=== PATIENT | male | born 1930 | race Caucasian/White ===

== ENCOUNTER 2018-08-18 15:32 | Observation (INO) ==
--- NOTE | 2018-08-18 16:17 | Emergency Department Note ---
Disposition Clinical Impression: Traumatic hematoma of right knee Qualifiers: Encounter type: initial encounter Qualified Code(s): S80.01XA - Contusion of right knee, initial encounter Disposition: Still a Patient Condition: Undetermined Forms: ED Satisfaction Letter Lower Extremity Injury HPI - General Chief Complaint: ED Extremity Injury, Lower Stated Complaint: Right knee injury and right shoulder s/p fell Time Seen by Provider: 08/18/18 15:45 Source: patient, family Mode of arrival: private vehicle Limitations: no limitations Nursing Notes Reviewed: Yes Vital Signs Reviewed: Yes - History of Present Illness Pt Subjective Complaint: knee injury Injury location: Right knee Onset (ago): day(s) (1) Mechanism of Injury: blunt, fall Context: fall Place: home Pain Severity: moderate Improves with: nothing Worsens with: weight bearing, movement, palpation Associated symptoms: Reports: able to partially bear weight, swelling. Denies: paresthesias, deformity, laceration, weakness - Related Data Home Medications Medication Instructions Recorded Confirmed Warfarin perPT [Coumadin perPT] 5 mg PO DAILY@1800 04/01/17 03/30/18 Albuterol Sulfate [Proair Hfa] 2 puff IH Q4HR PRN 05/01/17 03/30/18 Diltiazem [Cardizem] 120 mg PO DAILY 05/01/17 03/30/18 Dulaglutide [Trulicity] 0.75 mg SQ QWEEK 05/01/17 03/30/18 Fluticasone/Salmeterol [Advair 1 puff IH BID 05/01/17 03/30/18 500-50 Diskus] Montelukast [Singulair] 10 mg PO HS 05/01/17 03/30/18 Calcitriol [Rocaltrol] 0.25 mcg PO DAILY 01/27/18 03/30/18 Citalopram Hydrobromide 10 mg PO DAILY 01/27/18 03/30/18 [Citalopram HBr] Furosemide [Lasix] 20 mg PO DAILY PRN 01/27/18 03/30/18 Glimepiride [Amaryl] 1 mg PO DAILY 01/27/18 03/30/18 HYDROcodone/Acet 5/325 mg [[place] 1 tab PO Q6HR PRN 01/27/18 03/30/18 5-325 mg] Multivit-Min/FA/Lycopen/Lutein 1 each PO DAILY 01/27/18 03/30/18 [Centrum Silver Tablet] Vit A/Vit C/Vit E/Zinc/Copper 1 each PO DAILY 01/27/18 03/30/18 [Preservision Areds Tablet] Previous Rx's Medication Instructions Recorded Allopurinol [Zyloprim 100 MG] 100 mg PO DAILY tablet 04/06/16 Aspirin Enteric Coated [Aspirin EC] 81 mg PO DAILY tablet. 04/06/16 Allergies Allergy/AdvReac Type Severity Reaction Status Date / Time Penicillins Allergy Intermediate See Verified 08/18/18 15:43 Comments All systems ED: reviewed and negative except as stated. Review of Systems: As Per HPI Constitutional: Denies: fever, chills, weakness Eyes: Denies: vision change Cardiovascular: Denies: chest pain, palpitations, dyspnea on exertion Respiratory: Denies: cough, dyspnea Gastrointestinal: Denies: abdominal pain, nausea, vomiting Past Medical History - Past Medical History Attestation: Yes The following information was validated with the patient. Source: patient Medical history: Reports: arthritis, atrial fibrillation, cancer, CHF, COPD, CVA, diabetes, GERD, glaucoma, hyperlipidemia, hypertension, renal disease Surgical history: Reports: orthopedic, other Psychiatric history: Reports: no psych history - Social History Smoking Status: Never smoker Smokeless Tobacco Status: No Alcohol use: Reports: none Drug use: Reports: none Physical Exam - General Limitations: no limitations General appearance: alert, in no apparent distress - Head Head exam: atraumatic, normocephalic, normal inspection - Eye Eye exam: Present: normal appearance, PERRL. Absent: scleral icterus, conjunctival injection, periorbital swelling - ENT ENT exam: mucous membranes moist - Neck Neck exam: Present: normal inspection, full ROM, trachea midline. Absent: tenderness - Expanded Neck Exam Neck exam focused ED: Absent: midline tenderness, paraspinal tenderness, tenderness (other), anterior neck swelling - Chest Chest inspection: Present: normal inspection, symmetric chest wall rise. Absent: tenderness - Respiratory Respiratory exam: Present: normal lung sounds bilaterally. Absent: respiratory distress - Cardiovascular Cardiovascular exam: Present: regular rate, irregular rhythm - Abdominal Exam Abdominal exam: Present: soft, Non-Tender, distention. Absent: guarding, rebound, rigidity, trauma, pulsatile mass - Extremities Exam Extremities exam: Present: tenderness, normal capillary refill, joint swelling - Expanded Lower Extremity Exam Hip/Pelvis exam: Present: full ROM. Absent: tenderness Upper leg exam: Absent: tenderness 1 - tenderness 2 - edema, ecchymosis Knee exam: Present: full ROM, tenderness, swelling, ecchymosis, knee extension intact. Absent: deformity, crepitus, laxity with valgus, laxity with varus Lower leg exam: Present: Achilles tendon intact. Absent: tenderness, erythema, Homans' sign Ankle exam: Present: normal inspection, full ROM. Absent: tenderness, swelling, ecchymosis, deformity Foot/toe exam: Present: full ROM. Absent: tenderness, swelling, ecchymosis Neurovascular/Tendon exam: Present: normal capillary refill, normal fine/light touch, other (dry scaley skin). Absent: pulse deficit, motor deficit, sensory deficit, tendon deficit, extremity cold to touch, pallor, foot drop, significant pain with passive ROM of distal joint Gait: not tested/not observed - Back Exam Back exam: Present: other (5cm circumscribed contusion, lower T-spine, 2cm left lateral of spine). Absent: normal inspection, tenderness, vertebral tenderness - Neurological Exam Neurological exam: Present: alert, oriented X3, CN II-XII intact - Psychiatric Psychiatric exam: Present: normal affect, normal mood - Skin Skin exam: Present: warm, dry, intact, normal color Course Course Narrative: Pt with hx of Afib, on Warfarin, had a mechanical fall yesterday and injured his right knee, right shoulder and back. He states that his back and shoulder are better today but he still has a lot of pain in his knee and wants to get it checked out. He denies fever/chills, nausea/vomiting, dizziness, vertigo, syncope, paraesthesias or weakness, chest or abdominal pain. Patient's INR is 2.7 - checked on 08/17 at 12:10pm. Xray ordered. Patient has a significant hematoma - the entire anterior aspect of the right knee, and a contusion on the mid back - non-tender. He says that he ambulated from his house to his son's car with his walker and "did OK." He declines pain meds. He had "a little nausea" on the ride in to the ER but otherwise denies any systemic symptoms. He has a rotund / distended abdomen that is non-tender. No signs of trauma. Hi BP is 96/60. Historically his BP is is the one teens to 120's systolic. Again, he denies dizziness, syncope, vertigo, chest pain, hea dache or injury. Given the patient's age, co-morbidities, use of warfarin and mechanism - fall - initial impact on knee, then shoulder, then back - I am concerned for intra- abdominal injury. Will consult with attending for further evaluation. Case discussed with Dr. Fuller. She will see the patient in a medical bed / room. Vital Signs Temperature 97.7 F 08/18/18 15:43 Pulse Rate 61 08/18/18 15:43 Respiratory Rate 20 08/18/18 15:43 Blood Pressure 96/61 08/18/18 15:43 O2 Sat by Pulse Oximetry 94 08/18/18 15:43 Temperature 97.7 F 08/18/18 15:43 Pulse Rate 61 08/18/18 15:43 Respiratory Rate 20 08/18/18 15:43 Blood Pressure 96/61 08/18/18 15:43 O2 Sat by Pulse Oximetry 94 08/18/18 15:43 Oxygen Delivery Oxygen Delivery Room Air
--- NOTE | 2018-08-18 16:36 | Emergency Department Note ---
Disposition Clinical Impression: Acute kidney injury, Pleural effusion, GI bleed Traumatic hematoma of right knee Qualifiers: Encounter type: initial encounter Qualified Code(s): S80.01XA - Contusion of right knee, initial encounter Disposition: Admitted As Inpatient Condition: Undetermined Referrals: Socorro Whitman CNP [Primary Care Provider] - Forms: ED Satisfaction Letter Time of Disposition: 19:41 General Adult HPI - General Chief complaint: ED Extremity Injury, Lower Stated complaint: Right knee injury and right shoulder s/p fell Time Seen by Provider: 08/18/18 15:45 Source: patient, family Mode of arrival: private vehicle Limitations: no limitations - History of Present Illness Pain Scale: 9 - Related Data Home Medications Medication Instructions Recorded Confirmed Warfarin perPT [Coumadin perPT] 5 mg PO DAILY@1800 04/01/17 03/30/18 Albuterol Sulfate [Proair Hfa] 2 puff IH Q4HR PRN 05/01/17 03/30/18 Diltiazem [Cardizem] 120 mg PO DAILY 05/01/17 03/30/18 Dulaglutide [Trulicity] 0.75 mg SQ QWEEK 05/01/17 03/30/18 Fluticasone/Salmeterol [Advair 1 puff IH BID 05/01/17 03/30/18 500-50 Diskus] Montelukast [Singulair] 10 mg PO HS 05/01/17 03/30/18 Calcitriol [Rocaltrol] 0.25 mcg PO DAILY 01/27/18 03/30/18 Citalopram Hydrobromide 10 mg PO DAILY 01/27/18 03/30/18 [Citalopram HBr] Furosemide [Lasix] 20 mg PO DAILY PRN 01/27/18 03/30/18 Glimepiride [Amaryl] 1 mg PO DAILY 01/27/18 03/30/18 HYDROcodone/Acet 5/325 mg [[place] 1 tab PO Q6HR PRN 01/27/18 03/30/18 5-325 mg] Multivit-Min/FA/Lycopen/Lutein 1 each PO DAILY 01/27/18 03/30/18 [Centrum Silver Tablet] Vit A/Vit C/Vit E/Zinc/Copper 1 each PO DAILY 01/27/18 03/30/18 [Preservision Areds Tablet] Previous Rx's Medication Instructions Recorded Allopurinol [Zyloprim 100 MG] 100 mg PO DAILY tablet 04/06/16 Aspirin Enteric Coated [Aspirin EC] 81 mg PO DAILY tablet. 04/06/16 Allergies Allergy/AdvReac Type Severity Reaction Status Date / Time Penicillins Allergy Intermediate See Verified 08/18/18 15:43 Comments Constitutional: Denies: fever, chills, weakness Eyes: Denies: vision change Cardiovascular: Denies: chest pain, palpitations, dyspnea on exertion Respiratory: Denies: cough, dyspnea Gastrointestinal: Denies: abdominal pain, nausea, vomiting Past Medical History - Past Medical History Medical history: Reports: arthritis, atrial fibrillation, cancer, CHF, COPD, CVA, diabetes, GERD, glaucoma, hyperlipidemia, hypertension, renal disease Surgical history: Reports: orthopedic, other Psychiatric history: Reports: no psych history - Social History Smoking Status: Never smoker Smokeless Tobacco Status: No Alcohol use: Reports: none Drug use: Reports: none Physical Exam - General Limitations: no limitations General appearance: alert, in no apparent distress Course Vital Signs Temperature 97.7 F 08/18/18 15:43 Pulse Rate 61 08/18/18 15:43 Respiratory Rate 20 08/18/18 15:43 Blood Pressure 96/61 08/18/18 15:43 O2 Sat by Pulse Oximetry 94 08/18/18 15:43 Temperature 97.7 F 08/18/18 15:43 Pulse Rate 72 08/18/18 17:53 Respiratory Rate 17 08/18/18 17:53 Blood Pressure 131/84 08/18/18 17:53 O2 Sat by Pulse Oximetry 95 08/18/18 17:53 Oxygen Delivery Oxygen Delivery Room Air Medical Decision Making - Lab Data Result diagrams: 08/18/18 16:42 08/18/18 16:42 Lab Results 08/18/18 08/18/18 08/18/18 Range/Units 16:42 16:42 16:42 WBC 7.9 (4.3-11.1) K/mcL RBC 3.30 L (4.19-5.50) M/mcL Hgb 9.9 L (12.9-16.9) g/dL Hct 31.1 L (37.5-50.1) % MCV 94.2 (83.0-100.0) fL MCH 30.0 (28.0-33.3) pg MCHC 31.8 (31.6-35.5) g/dL RDW 18.9 H (11.5-14.5) % Plt Count 188 (140-400) K/mcL MPV 9.9 (9.4-12.4) fL PT 36.3 H (9.4-12.1) Seconds INR 3.2 Sodium 138 (136-145) mEq/L Potassium 4.7 (3.5-5.1) mEq/L Chloride 102 (98-107) mEq/L Carbon Dioxide 23 (23-29) mEq/L BUN 70 H (8-23) mg/dL Creatinine 2.69 H (0.70-1.30) mg/dL Est GFR ( Amer) 27 L (> 60) Est GFR (Non-Af Amer) 23 L (> 60) BUN/Creatinine Ratio 26 (6-26) Glucose 170 H (70-105) mg/dL Calculated Osmolality 310 H (280-300) Calcium 9.3 (8.6-10.3) mg/dL Creatine Kinase 50 (30-223) Units/L Stool Occult Bld Scrn (Negative) 08/18/18 Range/Units 18:06 WBC (4.3-11.1) K/mcL RBC (4.19-5.50) M/mcL Hgb (12.9-16.9) g/dL Hct (37.5-50.1) % MCV (83.0-100.0) fL MCH (28.0-33.3) pg MCHC (31.6-35.5) g/dL RDW (11.5-14.5) % Plt Count (140-400) K/mcL MPV (9.4-12.4) fL PT (9.4-12.1) Seconds INR Sodium (136-145) mEq/L Potassium (3.5-5.1) mEq/L Chloride (98-107) mEq/L Carbon Dioxide (23-29) mEq/L BUN (8-23) mg/dL Creatinine (0.70-1.30) mg/dL Est GFR ( Amer) (> 60) Est GFR (Non-Af Amer) (> 60) BUN/Creatinine Ratio (6-26) Glucose (70-105) mg/dL Calculated Osmolality (280-300) Calcium (8.6-10.3) mg/dL Creatine Kinase (30-223) Units/L Stool Occult Bld Scrn Positive A (Negative) Critical Care Time Critical Care Time: No Attestation Statement - Attestation Attestation: For this encounter, I have reviewed the HELP DESK INTERN or PA documentation, treatment plan, and medical decision making; and I have had face to face time with this patient. Patient presents to the ED after a fall. Patient lost his balance and fell directly onto his right knee. It happened yesterday afternoon. Did not hit his head. No back pain. No neck pain. No chest or abdominal pain. His knee is increasingly swollen and painful. He is currently on Coumadin for atrial fibrillation. States his INR was checked yesterday and it was 2.5. On examination he has significantly swollen right knee with ecchymosis. Small ecchymotic area over the lower thoracic spine is nontender. No chest or abdominal tenderness. Plan. Imaging of the knee. We will check INR and CBC. Patient does not have a fracture. He does not have a large hemarthrosis. He does have a GI bleed an AK I. He is given a small fluid bolus and Protonix. Admit to medicine. Dr. Mitchell accepts.
[2018-08-18 16:52] LABS: Hematocrit 31.1 % (37.5-50.1); Hemoglobin 9.9 g/dL (12.9-16.9); Mean Corpuscular HGB Conc 31.8 g/dL (31.6-35.5); Mean Corpuscular Volume 94.2 fL (83.0-100.0); Mean Platelet Volume 9.9 fL (9.4-12.4); Platelet Count 188 K/mcL (140-400); Red Cell Distribution Width 18.9 % (11.5-14.5)
[2018-08-18 16:59] LABS: INR 3.2; Prothrombin Time 36.3 Seconds (9.4-12.1)
[2018-08-18 17:15] LABS: Calcium 9.3 mg/dL (8.6-10.3); Potassium 4.7 mEq/L (3.5-5.1)
[2018-08-18] MEDS ORDERED: 0.9 % Sodium Chloride 500 ML IVC ONE (18:29)
[2018-08-18] MEDS ORDERED: Pantoprazole 40 MG VIAL IVP ONE (18:29)
[2018-08-19] MEDS ORDERED: Acetaminophen 325 MG TABLET PO PRN (00:57)
--- NOTE | 2018-08-19 02:45 | Internal Med History&Physical ---
Addendum entered and electronically signed by Benji Mitchell MD 08/20/18 00:25: I saw and evaluated the patient. I reviewed the residents note, performed my own physical examination and agree with findings and plan as documented in the residents note. Patient seen and examined on the morning of 08/19/18. Patient had fall, with injury to his right knee. No fracture noted on imaging. Does have apparent GI bleed, with anemia. GI to evaluate the patient when INR not elevated. Patient stable at time of exam. Original Note: Date of Encounter: 08/19/18 Time of Encounter: 02:45 Internal Medicine - H&P: HPI Chief complaint: GI bleed Admitted From: Emergency Dept History of present illness: Mr. Earl is a 87 year old male with a history of hypertension, congestive heart failure, atrial fibrillation, diabetes, and chronic kidney disease. He presented to the ED for evaluation of a right knee injury secondary to recent traumatic fall. Per ED documentation, patient initially reported associated back and right shoulder pain; however, he continued to have worsening right knee swelling and pain after his injury, which prompted him to seek evaluation. Knee x-ray demonstrated marked anterior and medial soft tissue swelling, which prompted further imaging. Subsequent CT of the right knee revealed no acute fracture or dislocation, but large extra-articular hematoma in the anterior and medial soft tissues. Due to history of anticoagulation patient also underwent CT of the abdomen, which demonstrated the presence of a left pleural effusion with lower lobe atelectasis, intrathoracic stomach, and diverticulosis without evidence of diverticulitis; however, no acute abdominal abnormalities were noted. Laboratory studies and EEG demonstrated hemoglobin of 9.9. Based on prior labora tor results, his baseline hemoglobin appears to be in the range of 10.5-11.5. Patient also had an elevated INR of 3.2. Stool occult blood was obtained and found to be positive. Patient was admitted to the hospitalist service for further workup and management of acute GI bleed and acute on chronic kidney injury. Patient was seen and evaluated at the bedside. He does endorse a remote history of a GI bleed, but states that he is unsure of the source. He reports noticing once stool that was darker in color; however he denies any tarry black stools or hematochezia. He reports one recent episode of nausea, but states that he has had no vomiting or changes in bowel habits. He he currently lives alone, though he has several children nearby that visit regularly. He endorses frequent falls, and states that he feels he become weaker since a stroke that occurred approximately one year ago. Review of systems was negative for headaches, visual changes, chest pain, shortness of breath, respiratory difficulties, abdominal pain, dizziness, or syncope. Past Med Surg Social Fam HX - Past Medical History Medical history: arthritis, atrial fibrillation, cancer, CHF, COPD, CVA, diabetes, GERD, glaucoma, hyperlipidemia, hypertension, renal disease Additional medical history: unknown at this time due to speech Psychiatric history: no psych history - Past Surgical History Surgical History: orthopedic, other Additional surgical history: 10 years left hip replacement, 40 years ago rectal abcess - Social History Smoking Status: Never smoker Smokeless Tobacco Status: No Alcohol use: none Drug use: none - Family History Father Adopted: No Family Member Ethnicity: Non- Living Status: Hx Family Cardiac Disorders: No Hx Family Respiratory Disorders: No Hx Family Cancer: No Hx Family GI Disorders: No Hx Family Endocrine Disorder: Yes (Father) Hx Family Neuromuscular Disorders: No Hx Family Neurologic Disorders: Yes (Mother) Hx Family HEENT Disorders: No Hx Family Autoimmune Disorders: No Mother Family Member Ethnicity: Non- Living Status: Hx Family Cardiac Disorders: Yes (HTN) Hx Family Respiratory Disorders: No Hx Family Cancer: No Hx Family GI Disorders: No Hx Family Endocrine Disorder: No Hx Family Neuromuscular Disorders: No Hx Family Neurologic Disorders: Yes (CVA) Hx Family HEENT Disorders: No Hx Family Autoimmune Disorders: No Internal Medicine - H&P: Meds Allopurinol [Zyloprim 100 MG] 100 mg PO DAILY tablet 04/06/16 [Rx] Aspirin Enteric Coated [Aspirin EC] 81 mg PO DAILY tablet. 04/06/16 [Rx] Albuterol Sulfate [Proair Hfa] 2 puff IH Q4HR PRN 05/01/17 [History] Diltiazem [Cardizem] 120 mg PO DAILY 05/01/17 [History] Dulaglutide [Trulicity] 0.75 mg SQ QWEEK 05/01/17 [History] Fluticasone/Salmeterol [Advair 500-50 Diskus] 1 puff IH BID 05/01/17 [History] Montelukast [Singulair] 10 mg PO HS 05/01/17 [History] Calcitriol [Rocaltrol] 0.25 mcg PO DAILY 01/27/18 [History] Citalopram Hydrobromide [Citalopram HBr] 10 mg PO DAILY 01/27/18 [History] Furosemide [Lasix] 20 mg PO DAILY PRN 01/27/18 [History] Glimepiride [Amaryl] 1 mg PO DAILY 01/27/18 [History] Multivit-Min/FA/Lycopen/Lutein [Centrum Silver Tablet] 1 each PO DAILY 01/27/18 [History] Vit A/Vit C/Vit E/Zinc/Copper [Preservision Areds Tablet] 1 each PO DAILY 01/27/18 [History] Warfarin [Coumadin] 5 mg PO 1800 08/19/18 [History] Allergy/AdvReac Type Severity Reaction Status Date / Time Penicillins Allergy Intermediate See Verified 08/18/18 15:43 Comments All Systems PM: A 10-system review of systems was performed and is negative for pertinent findings except as documented above in the HPI. - Constitutional Vitals: Temp Pulse Resp BP Pulse Ox 97.6 F 80 16 93/58 97 08/18/18 23:17 08/18/18 23:17 08/18/18 23:17 08/18/18 23:17 08/18/18 23:17 Exam: GENERAL: Pleasant elderly male resting in bed. He does not appear to be in acute distress. HEENT: Atraumatic and normocephalic. NECK: Soft and nontender. No thyromegaly or lymphadenopathy. CARDIOVASCULAR: Irregular rate and rhythm. S1 and S2 present. No murmurs, rubs, or gallops. RESPIRATORY: CTA bilaterally. Chest rises and falls symmetrically with respiration. No accessory muscle use noted. GASTROINTESTINAL: Active bowel sounds present 4 quadrants. Abdomen is soft, nondistended, and nontender. EXTREMITIES: No clubbing or cyanosis present. Extensive bruising present on and around the right knee, with associated edema. Intact blister presents along medial edge of the patella. Bruising present on the right arm and forearm. SKIN: Warm and dry. NEUROLOGIC: Alert and oriented 3. Patient is cooperative with exam and answers questions appropriately. No apparent focal deficits. Internal Med - H&P Results - Labs CBC & Chem 7: 08/19/18 04:06 08/19/18 04:06 Labs: Short CBC 08/18/18 Range/Units 16:42 WBC 7.9 (4.3-11.1) K/mcL Hgb 9.9 L (12.9-16.9) g/dL Hct 31.1 L (37.5-50.1) % Plt Count 188 (140-400) K/mcL BMP 08/18/18 16:42 Sodium 138 Potassium 4.7 Chloride 102 Carbon Dioxide 23 BUN 70 H Creatinine 2.69 H Glucose 170 H Calcium 9.3 - Impressions ITS Impressions Knee X-Ray 08/18/18 15:47 IMPRESSION: No acute fracture or dislocation identified. Marked anterior and medial soft tissue swelling. D/ / Jeronimo Green MD / Jeronimo Green MD Interpreting Provider: Jeronimo Green MD Knee CT 08/18/18 18:08 IMPRESSION: No acute fracture or dislocation is identified. Large extra-articular hematoma seen within the anterior and medial soft tissues, measuring up to 12.0 cm. Nonvisualization of the anterior cruciate ligament, which is probably chronic. Correlate with history of remote internal derangement, and correlate with physical exam. D/ / Jeronimo Green MD / Jeronimo Green MD Interpreting Provider: Jeronimo Green MD Abdomen/Pelvis CT 08/18/18 18:18 IMPRESSION: 1. No acute intra-abdominal abnormality. 2. No acute intrapelvic abnormality. 3. Left pleural effusion with lower lobe atelectasis. 4. Intrathoracic stomach. 5. Diverticulosis without obvious inflammation. D/ / Delon Hong MD / Delon Hong MD Interpreting Provider: Delon Hong MD - Assessment and plan (1) GI bleed Current Visit: Yes Status: Acute Assessment and plan: Initial laboratory studies drawn in the ED showed a hemoglobin of 9.9. Review of prior labs shows his baseline to be in the range of 10.5-11.5. Stool occult blood was positive, and patient reports noticing recent stool that was darker in color. Suspect upper GI origin. - Protonix loading dose given while in ED - Protonix gtt initiated - Type and screen - Serial H&H Q6H - Consult to gastroenterology for possible endoscopy - NPO diet in anticipation of likely GI procedure Qualifiers: GI bleed type/associated pathology: unspecified gastrointestinal hemorrhage type Qualified Code(s): K92.2 - Gastrointestinal hemorrhage, unspecified (2) Supratherapeutic INR Current Visit: Yes Status: Acute Assessment and plan: Patient is on warfarin therapy due to chronic atrial fibrillation. Morning labs demonstrated further drop in hemoglobin concerning for ongoing bleed. - Hold warfarin - 1 unit FFP ordered - Repeat PT/INR one hour after administration of FFP - Plan for further units of FFP as indicated based on patient response to treatment (3) [id number] kidney injury Current Visit: Yes Status: Acute Assessment and plan: Known history of CKD stage 3. Baseline creatinine appears to be around 1.7-1.8. Creatinine was found to be elevated at 2.69. - 500mL bolus administered while in ED - Repeat 500mL fluid bolus - Repeat electrolyte and renal function studies - Renally dose medications and avoid nephrotoxins - Consider nephrology consult if creatinine worsens Qualifiers: Acute renal failure type: unspecified Chronic kidney disease stage: stage 3 (moderate) Qualified Code(s): N17.9 - Acute kidney failure, unspecified; N18.3 - Chronic kidney disease, stage 3 (moderate) (4) History of CHF (congestive heart failure) Current Visit: Yes Status: Acute Assessment and plan: Patient does not appear to be having CHF exacerbation. His most recent echocardiogram was performed on 03/04/2018, and demosntrated LVEF of 65%. Other echocardiogram findings included severe biatrial enlargement, mild mitral regurgitation, moderate tricuspid regurgitation, severe pulmonary hypertension, and mild to moderate pulmonic regurgitation. At that time, he was also noted to have trivial pericardial effusion present along the inferior wall. - Continue close clinical monitoring of signs of acute exacerbation, particularly with fluid administration - Hold lasix due to acute on chronic kidney injury - Obtain daily weights - Record strict I/Os (5) Traumatic hematoma of right knee Current Visit: Yes Status: Acute Assessment and plan: Patient reports the present traumatic injury to his right knee. There is a large amount of swelling and ecchymosis present. CT scan of the right knee demonstrated no acute fracture or dislocation, but presence of large extra- articular hematoma in the anterior medial soft tissues. On exam, the right joint appears edematous. There is an intact blister present on the medial edge of the patella. - Symptomatic management - Topical antibiotic ointment if patient develops open wound at site of blister - Consider orthopedic consult if hematoma worsens Qualifiers: Encounter type: initial encounter Qualified Code(s): S80.01XA - Contusion of right knee, initial encounter (6) Recurrent falls Current Visit: Yes Status: Acute Assessment and plan: Patient reports a history of a CVA approximately 1 year ago. He denies any persistent deficits. He does report feeling weaker in general, which has worsened over the last year. He reports frequent falls, for which he has sought evaluation. - Physical and occupational therapy consults placed for evaluation - Consult to social work (7) DM2 (diabetes mellitus, type 2) Current Visit: No Status: Chronic Assessment and plan: History of diabetes managed with amaryl and dulaglutide. 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 Patient is anticoagulated on Coumadin. - Hold Coumadin in light of acute GI bleed - Continue home dose of cardizem Qualifiers: Atrial fibrillation type: chronic Qualified Code(s): I48.2 - Chronic atrial fibrillation (9) COPD (chronic obstructive pulmonary disease) Current Visit: No Status: Acute Assessment and plan: Patient has a history of COPD; however, he does not appear to be having an acute exacerbation. He denies any worsening shortness of breath or wheezing. - Continue symbicort BID - Albuterol inhaler Q4H PRN Qualifiers: COPD type: COPD with acute exacerbation Qualified Code(s): J44.1 - Chronic obstructive pulmonary disease with (acute) exacerbation (10) DVT prophylaxis Current Visit: No Status: Acute Assessment and plan: - Currently held due to acute GI bleed and supratherapeutic INR - See above for further management plan - Time Spent With Patient Total time spent is greater than 50% in coordination of care (as documented) at patient's floor/unit and/or counseling patient:
[2018-08-19] MEDS ORDERED: Naloxone 0.4 MG/ML INJ IVP PRN (03:42)
[2018-08-19] MEDS ORDERED: Dextrose Gel 15 GM/37.5 ML TUBE PO PRN ×2 (03:44)
[2018-08-19] MEDS ORDERED: D5% in Water 1,000 ML IVC PRN (03:44)
[2018-08-19] MEDS ORDERED: *HR* Dextrose 50 % in Water (Syg) 50 ML SYRINGE IVP PRN (03:44)
[2018-08-19] MEDS ORDERED: Pantoprazole 40 MG in 0.9 % Sodium Chloride Mini Bag 100 ML IVC SCH (03:45)
[2018-08-19 04:26] LABS: Basophils % 0.3 %; Eosinophils # 0.1 K/mcL (0.0-0.6); Eosinophils % 1.8 %; Hematocrit 27.6 % (37.5-50.1); Hemoglobin 8.6 g/dL (12.9-16.9); Immature Granulocytes % 0.4 % (0-4); Lymphocytes # 1.7 K/mcL (0.6-4.6); Mean Corpuscular HGB Conc 31.2 g/dL (31.6-35.5); Mean Corpuscular Hemoglobin 29.1 pg (28.0-33.3); Mean Corpuscular Volume 93.2 fL (83.0-100.0); Monocytes # 0.9 K/mcL (0.0-1.3); Monocytes % 11.3 %; Platelet Count 163 K/mcL (140-400); Red Blood Count 2.96 M/mcL (4.19-5.50); Segmented Neutrophils % 64.2 %
[2018-08-19 04:32] LABS: INR 3.9
[2018-08-19 04:39] LABS: Prothrombin Time 43.7 Seconds (9.4-12.1)
[2018-08-19 04:43] LABS: Bilirubin,Total 0.4 mg/dL (0.3-1.0); Globulin 2.9 g/dL (2.4-3.5); Potassium 4.3 mEq/L (3.5-5.1); Total Protein 5.9 g/dL (6.4-8.9)
[2018-08-19] MEDS ORDERED: 0.9 % Sodium Chloride 500 ML IVC ONE (06:45)
[2018-08-19] MEDS: Insulin LISPRO 300 UNITS/3 ML VIAL SQ SCH ×3 (07:41→18:12)
[2018-08-19 09:13] LABS: INR 2.7; Prothrombin Time 30.2 Seconds (9.4-12.1)
[2018-08-19] MEDS: Budesonide/Formoterol 160/4.5 1 PUFF INH IH SCH ×2 (10:03→20:11)
[2018-08-19 10:12] LABS: Hematocrit 28.4 % (37.5-50.1); Hemoglobin 9.3 g/dL (12.9-16.9)
--- NOTE | 2018-08-19 11:34 | Gastroenterology Consult Note ---
<Cherelle Pino - Last Filed: 08/19/18 11:32> Date of Encounter: 08/19/18 Time of Encounter: 09:10 - Assessment and plan (1) Anemia Current Visit: Yes Status: Acute Assessment and plan: 87 year old male who presents after fall at home. Anemia may be related to large hematoma to right knee, however Hgb has been trending down over the past several months. He is on coumadin for a-fib and reports black stools a couple weeks ago, hemoccult was positive. He will need an EGD when INR is closer to 2. May need colonoscopy depending on results. Qualifiers: Anemia type: other cause Other causes of anemia: other cause, not classified Qualified Code(s): D64.89 - Other specified anemias (2) Traumatic hematoma of right knee Current Visit: Yes Status: Acute Assessment and plan: likely contributes to anemia Qualifiers: Encounter type: initial encounter Qualified Code(s): S80.01XA - Contusion of right knee, initial encounter (3) Supratherapeutic INR Current Visit: Yes Status: Acute Assessment and plan: Coumadin on hold currently - Time Spent With Patient Total time spent is greater than 50% in coordination of care (as documented) at patient's floor/unit and/or counseling patient: GI History of Present Illness - Data of Consult Patient: new to practice Consult date: 08/19/18 Requesting Physician: Benji Mitchell MD - Consult Narrative Reason for consult: anemia, black stools History of present illness: Mr. Earl is a 87 year old male with a history of hypertension, congestive heart failure, atrial fibrillation, diabetes, and chronic kidney disease. He presented to the ED for evaluation of a right knee injury secondary to recent traumatic fall. Knee x-ray demonstrated marked anterior and medial soft tissue swelling, which prompted further imaging. Subsequent CT of the right knee revealed no acute fracture or dislocation, but large extra-articular hematoma in the anterior and medial soft tissues. Due to history of anticoagulation patient also underwent CT of the abdomen, which demonstrated the presence of a left pleural effusion with lower lobe atelectasis, intrathoracic stomach, and diverticulosis without evidence of diverticulitis; however, no acute abdominal abnormalities were noted. He admits to some black stools a couple weeks ago has not resolved. He denies any reflux no nausea or vomiting diarrhea or abdominal pain. He complains of occasional constipation. He is on Coumadin for A. fib and his INR was 3.9 this morning. Hemoglobin is 8.6 which is drop from baseline of 11 in April 2018. Colonoscopy 2011 with diverticulosis EGD denies Anticoagulant: Coumadin on hold NSAIDs denies Past Med Surg Social Fam HX - Past Medical History Medical history: arthritis, atrial fibrillation, cancer, CHF, COPD, CVA, diabetes, GERD, glaucoma, hyperlipidemia, hypertension, renal disease Additional medical history: unknown at this time due to speech Psychiatric history: no psych history - Past Surgical History Surgical History: orthopedic, other Additional surgical history: 10 years left hip replacement, 40 years ago rectal abcess - Social History Smoking Status: Never smoker Smokeless Tobacco Status: No Alcohol use: none Drug use: none - Family History Father Adopted: No Family Member Ethnicity: Non- Living Status: Hx Family Cardiac Disorders: No Hx Family Respiratory Disorders: No Hx Family Cancer: No Hx Family GI Disorders: No Hx Family Endocrine Disorder: Yes (Father) Hx Family Neuromuscular Disorders: No Hx Family Neurologic Disorders: Yes (Mother) Hx Family HEENT Disorders: No Hx Family Autoimmune Disorders: No Mother Family Member Ethnicity: Non- Living Status: Hx Family Cardiac Disorders: Yes (HTN) Hx Family Respiratory Disorders: No Hx Family Cancer: No Hx Family GI Disorders: No Hx Family Endocrine Disorder: No Hx Family Neuromuscular Disorders: No Hx Family Neurologic Disorders: Yes (CVA) Hx Family HEENT Disorders: No Hx Family Autoimmune Disorders: No Review of Systems: GI: as per [facility] GENERAL: denies fever, or chills EYES: denies yellow discoloration ENT: denies pain with swallowing or difficulty swallowing CARDIO: denies chest pain, palpitations RESP:Shortness of breath with exertion : denies change in color of urine NEURO: weakness HEME inreased bruising MS: chronic joint pain, currently increased to right knee. DERM: denies rash or itching PSYCH: Denies history of anxiety or depression - Constitutional Vitals: Temp Pulse Resp BP Pulse Ox 97.7 F 66 17 102/64 93 08/19/18 11:03 08/19/18 11:03 08/19/18 11:03 08/19/18 11:03 08/19/18 11:03 Exam: CONSTITUTIONAL:alert, no acute distress.HEAD:normocephalic.EYES:no jaundice.NECK:no obvious swelling.HEART:irregular rate and rhythm, no murmurs.LUNGS:bilateral fair air entry.ABDOMEN:non distended, soft, non tender, no masses palpable, no organomegaly.RECTAL EXAM:Defer red.EXTREMITIES:bruising to bilateral arms and legs, large hematoma to right knee.SKIN:pallor noted, scattered bruising, no stigmata of chronic liver disease.NEUROLOGIC:no obvious focal defect. Results - Labs CBC & Chem 7: 08/19/18 09:49 08/19/18 04:06 Labs: Last Result Calcium 9.0 mg/dL (8.6-10.3) 08/19/18 04:06 Entire Visit Hgb 9.3 g/dL (12.9-16.9) L 08/19/18 09:49 Hct 28.4 % (37.5-50.1) L 08/19/18 09:49 PT 30.2 Seconds (9.4-12.1) H 08/19/18 08:50 Total Bilirubin 0.4 mg/dL (0.3-1.0) 08/19/18 04:06 AST 22 Units/L (13-39) 08/19/18 04:06 ALT 16 Units/L (7-52) 08/19/18 04:06 - ABG ABG results: PT/INR, D-dimer PT 30.2 Seconds (9.4-12.1) H 08/19/18 08:50 - Impressions Impressions Knee X-Ray 08/18/18 15:47 IMPRESSION: No acute fracture or dislocation identified. Marked anterior and medial soft tissue swelling. D/ / Jeronimo Green MD / Jeronimo Green MD Interpreting Provider: Jeronimo Green MD Knee CT 08/18/18 18:08 IMPRESSION: No acute fracture or dislocation is identified. Large extra-articular hematoma seen within the anterior and medial soft tissues, measuring up to 12.0 cm. Nonvisualization of the anterior cruciate ligament, which is probably chronic. Correlate with history of remote internal derangement, and correlate with physical exam. D/ / Jeronimo Green MD / Jeronimo Green MD Interpreting Provider: Jeronimo Green MD Abdomen/Pelvis CT 08/18/18 18:18 IMPRESSION: 1. No acute intra-abdominal abnormality. 2. No acute intrapelvic abnormality. 3. Left pleural effusion with lower lobe atelectasis. 4. Intrathoracic stomach. 5. Diverticulosis without obvious inflammation. D/ / Delon Hong MD / Delon Hong MD Interpreting Provider: Delon Hong MD Consult Discharge Plan - Plan Referrals: Socorro Whitman, [facility] [Primary Care Provider] - <Ritika Lopez - Last Filed: 08/19/18 18:34> Time of Encounter: 15:00 - Time Spent With Patient Total time spent is greater than 50% in coordination of care (as documented) at patient's floor/unit and/or counseling patient: GI History of Present Illness - Data of Consult Requesting Physician: Benji Mitchell MD - Consult Narrative History of present illness: Mr. Earl is a 87 year old male - Constitutional Vitals: Temp Pulse Resp BP Pulse Ox 97.4 F L 71 17 107/69 93 08/19/18 15:35 08/19/18 15:35 08/19/18 15:35 08/19/18 15:35 08/19/18 15:35 Results - Labs CBC & Chem 7: 08/19/18 15:57 08/19/18 04:06 Labs: Last Result Calcium 9.0 mg/dL (8.6-10.3) 08/19/18 04:06 Entire Visit Hgb 8.5 g/dL (12.9-16.9) L 08/19/18 15:57 Hct 26.3 % (37.5-50.1) L 08/19/18 15:57 PT 30.2 Seconds (9.4-12.1) H 08/19/18 08:50 Total Bilirubin 0.4 mg/dL (0.3-1.0) 08/19/18 04:06 AST 22 Units/L (13-39) 08/19/18 04:06 ALT 16 Units/L (7-52) 08/19/18 04:06 - ABG ABG results: PT/INR, D-dimer PT 30.2 Seconds (9.4-12.1) H 08/19/18 08:50 - Impressions Impressions Knee CT 08/18/18 18:08 IMPRESSION: No acute fracture or dislocation is identified. Large extra-articular hematoma seen within the anterior and medial soft tissues, measuring up to 12.0 cm. Nonvisualization of the anterior cruciate ligament, which is probably chronic. Correlate with history of remote internal derangement, and correlate with physical exam. D/ / Jeronimo Green MD / Jeronimo Green MD Interpreting Provider: Jeronimo Green MD Abdomen/Pelvis CT 08/18/18 18:18 IMPRESSION: 1. No acute intra-abdominal abnormality. 2. No acute intrapelvic abnormality. 3. Left pleural effusion with lower lobe atelectasis. 4. Intrathoracic stomach. 5. Diverticulosis without obvious inflammation. D/ / Delon Hong MD / Delon Hong MD Interpreting Provider: Delon Hong MD - Attending Attestation I have personally performed a face to face evaluation on this patient. I have reviewed and agree with the care plan. History and Exam by me shows: Pt seen at the bedside denies any blood in the stool. On examination: Right knee large hematoma. Assessment: Patient with blood loss anemia most probably due to right knee hematoma. Patient with no overt GI bleeding. #2 positive stool guaiac. Recommendation: No endoscopy indicated at this point we will consider colonoscopy as an outpatient in about 4-6 months once [facility] knee heals
--- NOTE | 2018-08-19 13:20 | Event Note ---
Date of Encounter: 08/19/18 Time of Encounter: 13:11 Pt denies yuly blood per rectum. Pt has hx of Afib for which he is on Coumadin. Reports having 60 lbs weight loss in past 3 months, which he attributes to recent medical condition. He denies hemorrhoids that he is aware of. He last colonoscopy was 2011 and unaware of Hx of EGD. BP stable with MAP > 60, but orthostatic vitals positive. GI consulted to see and planing EGD with possible colonoscopy. luzmaria SCHMITZ will follow 08/20/2018.
[2018-08-19] MEDS: Pantoprazole 40 MG VIAL IVP SCH ×2 (13:23→18:12)
[2018-08-19 17:00] LABS: Hematocrit 26.3 % (37.5-50.1); Hemoglobin 8.5 g/dL (12.9-16.9)
--- NOTE | 2018-08-19 19:52 | General Surgery Procedure Note ---
Date of procedure: 08/19/18 Pre-op diagnosis: Laceration right hand Procedure: Suture closure laceration right hand Complications: None apparent Anesthesia: local (3 mL 1% lidocaine with 1 100,000 epinephrine) Surgeon: Lamont Cortez Estimated blood loss (cc): 0 Pathology: none sent Condition: stable Disposition: floor (87-year-old male referred to surgical services for further evaluation and treatment of a laceration in the webspace between the thumb and index finger of the right hand. The patient describes injuring his hand earlier today while trying to transfer from the bed to the bedside commode. He also injured his right knee with extensive swelling and ecchymoses noted. X-rays are reported to demonstrate no fracture. I discussed suturing the laceration with the patient. Risks include failure to heal, wound necrosis, and infection. The patient gave verbal consent for the procedure. The webspace of the right hand was prepped with Betadine and then infiltrated with approximately 3 mL 1% lidocaine with 1 100,000 units epinephrine. The curvilinear laceration measured approximately 2 cm in length. The laceration was somewhat oblique causing a flap-like effect on the thumb side of the laceration. The skin edges were approximated with 3 interrupted 4-0 Ethilon. A fluffy gauze dressing was applied. The patient tolerated the wound closure well.)
[2018-08-20 03:01] LABS: ABG Base Excess -12 mEq/L (-2 to 3); ABG HCO3 15 mEq/L (21-27); ABG Oxygen Saturation 100 % (95-98); ABG PCO2 42 mmHg (35-45); ABG PH 7.17 pH Units (7.32-7.45); ABG PO2 246 mmHg (85-104); ABG TCO2 17 mEq/L (20-26)
[2018-08-20] MEDS ORDERED: FentaNYL (PF) 1,000 MCG in 0.9 % Sodium Chloride 80 ML IVC SCH (03:15)
[2018-08-20] MEDS ORDERED: Dexmedetomidine HCl 400 MCG/100 ML MLS IVC SCH (03:15)
[2018-08-20 03:16] LABS: Basophils % 0.2 %; Eosinophils % 0.2 %; Hematocrit 27.7 % (37.5-50.1); Hemoglobin 8.5 g/dL (12.9-16.9); Immature Granulocytes % 1.1 % (0-4); Lymphocytes # 5.6 K/mcL (0.6-4.6); Lymphocytes % 37.3 %; Mean Corpuscular HGB Conc 30.7 g/dL (31.6-35.5); Mean Corpuscular Hemoglobin 30.2 pg (28.0-33.3); Mean Corpuscular Volume 98.6 fL (83.0-100.0); Mean Platelet Volume 10.6 fL (9.4-12.4); Monocytes # 1.1 K/mcL (0.0-1.3); Monocytes % 7.1 %; Neutrophils # 8.1 K/mcL (1.6-8.9); Nucleated Red Blood Cells 0.5 /100 WBC (0); Platelet Count 217 K/mcL (140-400); Red Blood Count 2.81 M/mcL (4.19-5.50); Red Cell Distribution Width 19.5 % (11.5-14.5); Segmented Neutrophils % 54.1 %
[2018-08-20 03:17] LABS: VBG Ionized Calcium 1.07 mmol/L (1.15-1.35)
[2018-08-20] MEDS ORDERED: 0.9 % Sodium Chloride 1,000 ML IVC ONE (03:29)
[2018-08-20 03:35] LABS: Albumin 3.1 g/dL (3.5-5.7); Albumin/Globulin Ratio 1.1 (1.1-2.2); Bilirubin,Total 0.6 mg/dL (0.3-1.0); Calcium 8.8 mg/dL (8.6-10.3); Globulin 2.9 g/dL (2.4-3.5); Potassium 4.3 mEq/L (3.5-5.1)
[2018-08-20] MEDS ORDERED: D5% in Water 1,000 ML IVC PRN (04:01)
[2018-08-20] MEDS ORDERED: *HR* Dextrose 50 % in Water (Syg) 50 ML SYRINGE IVP PRN (04:01)
[2018-08-20] MEDS ORDERED: Dextrose Gel 15 GM/37.5 ML TUBE PO PRN ×2 (04:01)
[2018-08-20 04:20] VITALS: BP 52/29
[2018-08-20 04:31] LABS: INR 2.8; Prothrombin Time 31.8 Seconds (9.4-12.1)
[2018-08-20 04:35] LABS: Troponin I 4.63 ng/mL (< 0.04)
[2018-08-20] MEDS ORDERED: Insulin LISPRO 300 UNITS/3 ML VIAL SQ SCH ×3 (06:00→21:00)
--- NOTE | 2018-08-20 06:44 | Discharge Summary ---
Orders not resulted at time of discharge: Pending orders 08/18/18 19:36 EKG [ECG 12 lead ECG] [ECG] Stat 08/20/18 03:10 EKG [ECG 12 lead ECG] [ECG] Stat 08/20/18 03:55 Culture,Blood [BC] Stat Date of Encounter: 08/20/18 Time of Encounter: 02:50 - Discharge Diagnosis (1) DM2 (diabetes mellitus, type 2) Priority: Secondary Status: Chronic Qualifiers: Diabetes mellitus intermediate insulin use: with intermediate use Diabetes mellitus complication status: with kidney complications Diabetes mellitus complication detail: with chronic kidney disease Chronic kidney disease stage: stage 3 (moderate) Qualified Code(s): E11.22 - Type 2 diabetes mellitus with diabetic chronic kidney disease; N18.3 - Chronic kidney disease, stage 3 (moderate); Z79.4 - 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 (current) use of insulin (2) CKD (chronic kidney disease) stage 3, GFR 30-59 ml/min Priority: Secondary Status: Acute (3) Traumatic hematoma of right knee Priority: Secondary Status: Acute Qualifiers: Encounter type: initial encounter Qualified Code(s): S80.01XA - Contusion of right knee, initial encounter (4) GI bleed Priority: Primary Status: Acute Qualifiers: GI bleed type/associated pathology: unspecified gastrointestinal hemorrhage type Qualified Code(s): K92.2 - Gastrointestinal hemorrhage, unspecified (5) Supratherapeutic INR Priority: Primary Status: Acute (6) History of CHF (congestive heart failure) Priority: Secondary Status: Acute (7) Anemia Priority: Primary Status: Acute Qualifiers: Anemia type: other cause Other causes of anemia: other cause, not classified Qualified Code(s): D64.89 - Other specified anemias Hospital course: Mr. Earl is a 87 year old male Patient was admitted 08/19/18 after sustaining a fall resulting in a right knee hematoma. Initial imaging showed no acute fractures, but he was found to have an elevated INR as well as a GI bleed. GI did consult on the patient and had planned to scope him once his INR was decreased. Unfortunately, on the morning of 08/20/18 patient had respiratory arrest, a [facility] was called. He was immediately bagged mask ventilated, and initially had a pulse however this was soon lost and chest compressions were initiated. Patient was successfully intubated, 2 doses of epinephrine were given and pulse returned and patient was transported to the ICU for further management. Upon arrival to the emergency room blood work was drawn, chest x-ray was ordered. Patient's blood pressure continued to be low, and at this point patient's family had arrived at bedside. We discussed with the family prognosis, which included likely giving patient a central line access for critical blood pressure medications. After some discussion regarding this the family decided to not pursue any further medical interventions. They agreed to switch patient to comfort care measures only, and they remained at bedside until the patient at 4:25 AM. - Time Spent with Patient Total time spent providing and/or coordinating discharge services: - Discharge Medications Home Medications: Allopurinol [Zyloprim 100 MG] 100 mg PO DAILY tablet 04/06/16 [Rx] Aspirin Enteric Coated [Aspirin EC] 81 mg PO DAILY tablet. 04/06/16 [Rx] Albuterol Sulfate [Proair Hfa] 2 puff IH Q4HR PRN 05/01/17 [History] Diltiazem [Cardizem] 120 mg PO DAILY 05/01/17 [History] Dulaglutide [Trulicity] 0.75 mg SQ QWEEK 05/01/17 [History] Fluticasone/Salmeterol [Advair 500-50 Diskus] 1 puff IH BID 05/01/17 [History] Montelukast [Singulair] 10 mg PO HS 05/01/17 [History] Calcitriol [Rocaltrol] 0.25 mcg PO DAILY 01/27/18 [History] Citalopram Hydrobromide [Citalopram HBr] 10 mg PO DAILY 01/27/18 [History] Furosemide [Lasix] 20 mg PO DAILY PRN 01/27/18 [History] Glimepiride [Amaryl] 1 mg PO DAILY 01/27/18 [History] Multivit-Min/FA/Lycopen/Lutein [Centrum Silver Tablet] 1 each PO DAILY 01/27/18 [History] Vit A/Vit C/Vit E/Zinc/Copper [Preservision Areds Tablet] 1 each PO DAILY 01/27/18 [History] Warfarin [Coumadin] 5 mg PO 1800 08/19/18 [History] Allergies/Adverse Reactions: Allergy/AdvReac Type Severity Reaction Status Date / Time Penicillins Allergy Intermediate See Verified 08/18/18 15:43 Comments Date of admission: 08/18/18 19:55 Primary care physician: Socorro Whitman CNP Consults: 08/18/18 21:02 Consult to Nutrition [CONS] Routine Comment: Consulting Provider: NUTRITION Reason for Dietary Consult: MST Score Consult to Capture Manager [CONS] Routine Reason for SW Consult: [place] outpatient PT/OT 08/19/18 03:49 Consult to Gastroenterology [CONS] Routine Consulting Provider: [facility] [place] Reason for Consult: Positive stool occult blood Time Notified: 03:49 Call Completed: No Consult to Occupational Therapy [CONS] Routine Comment: Evaluate, develop and implement POC Reason for Consult: Multiple recent falls Does patient have active BEDREST order?: No Is patient medically & hemodynamically stable?: Yes Consult to Physical Therapy [CONS] Routine Comment: Evaluate, develop and implement POC Reason for Consult: Multiple recent falls Does patient have active BEDREST order?: No Is patient medically & hemodynamically stable?: Yes 08/19/18 17:56 Consult to Surgery [CONS] Routine Consulting Provider: Lamont Cortez Reason for Consult: Right hand laceration Call Completed: Yes - Constitutional Vitals: Temp Pulse Resp BP Pulse Ox 96.9 F L 84 23 52/29 95 08/20/18 03:00 08/20/18 04:06 08/20/18 04:06 08/20/18 04:06 08/20/18 04:06 Exam: Patient - Patient Status Disposition: Condition: Undetermined - Discharge Instructions Follow Up With: Socorro Whitman CNP [Primary Care Provider] -
[2018-08-20] MEDS ORDERED: *HR* EPINEPHrine 1 MG/10 ML SYRINGE IVP ONE (19:56)
[2018-08-20] MEDS ORDERED: *HR* Atropine Sulfate 1 MG/10 ML SYRINGE IV ONE (19:56)
--- NOTE | 2018-08-20 21:01 | Electrocardiograph Report ---
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
== END 2018-08-20 04:25 | disposition expired ==
LOC: 2ANU 15:32 → EMEROOARM 15:32 → 2ANU 20:21 → ICNU 08-20 02:53
PROVIDERS: ADMIT Family Medicine; ATTEND Family Medicine